=== PATIENT | female | born 1950 | race Caucasian/White ===

== ENCOUNTER 2020-06-12 10:14 | Outpatient (CLI) | payer MEDICARE, MEDICAID, SELFPAY ==
--- NOTE | ~2020-06-12 | XR_ITS ---
EXAMINATION: XR knee RT min 4V DATE: 06/12/2020 09:21 INDICATION: Right knee injury and pain. TECHNIQUE: 4 views of right knee were obtained. COMPARISON: None. FINDINGS: There is varus angulation at the knee. No fracture. There is mild tricompartmental osteoart hritis. There is a small knee joint effusion. IMPRESSION: 1. Mild right knee osteoarthritis. 2. Small right knee joint effusion. Reviewed, dictated and finalized at location A.
== END 2020-06-12 10:15 | disposition home or self-care (01) ==
LOC: ANHIMG 10:15
PROVIDERS: PCP Physician Assistant; Visit Provider Physician Assistant
DX: S89.91XA Unspecified injury of right lower leg, initial encounter (principal); M17.11 Unilateral primary osteoarthritis, right knee; M25.461 Effusion, right knee
CPT/HCPCS: 73564

== ENCOUNTER 2020-06-26 12:44 | Outpatient (CLI) | payer MEDICARE, MEDICAID, SELFPAY ==
--- NOTE | ~2020-06-26 | MR_ITS ---
EXAMINATION: MR knee RT wo con DATE: 06/26/2020 14:18 INDICATION: Right knee pain TECHNIQUE: Magnetic resonance imaging (MRI) of the right knee was performed without intravenous contr ast. Sequences included coronal PD-weighted FSE, coronal PD-weighted FS FSE, sagittal T2-weighted FS E, sagittal PD-weighted FS FSE and axial PD weighted fat saturated FSE. COMPARISON: Right knee radiographs dated 06/12/2020 FINDINGS: Mild motion blurring on several of the sequences. Medial compartment: There is medial extrusion of the medial meniscal body. Radial tear near the posterior root of the med ial meniscus. Cartilage loss and chondral surface irregularity along the anterior and medial aspects of the medial tibial plateau. There is marrow edema underlying the medial rim of the medial tibial pl ateau with small region of subarticular decreased signal which could represent either eburnation and sclerosis or potentially subarticular stress fracture related to altered weight distribution. Additio nal partial thickness cartilage loss with chondral surface regularity along the anterior to central w eightbearing medial femoral condyle. There is some chondral fissuring along the posterior weightbeari ng medial femoral condyle with relatively preserved chondral thickness. Small marginal osteophytes ar e present. Lateral compartment: Loss of the normally sharp triangular free edge along the anterior horn and body of the lateral menis cus suggesting fraying and/or tear of indeterminate morphology. There is some partial-thickness chond ral fissuring without degenerative subarticular changes at the anterior weightbearing lateral femoral condyle. Mild thickness cartilage loss along the central weightbearing lateral femoral condyle incre asing in severity with small focus of subarticular edema at the posterior weightbearing lateral femor al condyle. There is also some partial thickness cartilage loss and chondral fissuring at the medial side of the lateral tibial plateau extending onto the shoulder the intercondylar eminence. Patellofemoral compartment: Extensive cartilage loss along the patella, in places approaching full/near full-thickness but withou t degenerative subarticular changes. Additional partial thickness cartilage loss along the lateral tr ochlea. Small marginal osteophytes are present. Ligaments and tendons: Anterior and posterior cruciate ligaments are normal. Mild thickening and minimal increased signal wi thout surrounding edema at the proximal medial collateral ligament consistent with mild scarring rela delores to chronic sprain. The fibular collateral ligament is normal. The extensor mechanism is normal. T he visualized medial and lateral hamstring tendons as well as the iliotibial band are normal. Fluid: Small right knee joint effusion. No loose osteochondral bodies identified. Osseous/other: Small low signal intensity bone islands at the lateral femoral condyle and at the lateral aspect of t he proximal tibia near the tibiofibular articulation. Aside from the subarticular edema at the medial tibial plateau there is normal marrow signal. No fracture or pathologic marrow replacing process. IMPRESSION: 1. Radial tear at the posterior root of the medial meniscus. 2. Fraying versus tear of indeterminate morphology along the inner free edge of the anterior horn and body of the lateral meniscus. 3. Tricompartmental osteoarthritis, moderate in the medial and patellofemoral compartments and mild i n the lateral compartment with regions of moderate to high-grade chondral malacia in all 3 compartmen ts. 4. Prominent marrow edema underlying the medial rim of the medial tibial plateau which could be relat ed to overlying chondromalacia or small subarticular stress fracture related to altered weight distri bution. 5. Likely reactive small right knee joint effusion.
== END 2020-06-26 12:45 | disposition home or self-care (01) ==
PROVIDERS: PCP Physician Assistant; Visit Provider Physician Assistant
DX: S83.241A Other tear of medial meniscus, current injury, right knee, initial encounter (principal); S83.281A Other tear of lateral meniscus, current injury, right knee, initial encounter; M17.11 Unilateral primary osteoarthritis, right knee; M22.41 Chondromalacia patellae, right knee; M79.89 Other specified soft tissue disorders; M25.461 Effusion, right knee
CPT/HCPCS: 73721

== ENCOUNTER 2020-07-14 07:26 | Outpatient (CLI) | payer MEDICARE, MEDICAID, SELFPAY ==
--- NOTE | 2020-07-14 08:20 | ECG_ITS ---
Measurements Intervals [place] Rate: 66 P: 56 SC: 152 QRS: -3 QRSD: 90 T: 1 QT: 378 QTc: 398 Interpretive Statements SINUS RHYTHM POSSIBLE LEFT ATRIAL ENLARGEMENT VOLTAGE CRITERIA FOR LVH CANNOT RULE OUT SEPTAL INFARCT, AGE INDETERMINATE CONSIDER INFERIOR INFARCT, AGE INDETERMINATE BASELINE ARTIFACT- II, III, AVF ABNORMAL ECG Electronically Signed On 07-14-2020 15:03:29 CDT by Maurice Chanel D.O.
[2020-07-14 09:10] LABS: Anion Gap 4 mmol/L (8-16); Blood Urea Nitrogen 16 mg/dL (7-17); Carbon Dioxide 36 mmol/L (22-30); Chloride 99 mmol/L (98-107); Estimated Glomerular Filt Rate > 60; Glucose 81 mg/dL (65-105); Potassium 3.2 mmol/L (3.4-5.0); Sodium 139 mmol/L (137-145)
== END 2020-07-14 07:27 | disposition home or self-care (01) ==
LOC: ANHLAB 07:29
PROVIDERS: PCP Physician Assistant; Visit Provider Orthopaedic Surgery
DX: Z01.818 Encounter for other preprocedural examination (principal); R94.31 Abnormal electrocardiogram [ECG] [EKG]
CPT/HCPCS: 36415; 80048; 93005

== ENCOUNTER → 2021-03-08 14:00 | Outpatient (CLI) | payer MEDICARE, MEDICAID, SELFPAY ==
--- NOTE | ~2021-03-08 | MM_ITS ---
EXAMINATION: MM screening [facility] w [facility] HISTORY: Screening mammogram TECHNIQUE: Craniocaudal and mediolateral oblique 3-D tomosynthesis images were obtained and synthetic 2-D images were generated. CAD analysis was submitted and interpreted. COMPARISON: 07/26/2018 bilateral digital screening mammogram 08/13/2018 diagnostic right digital mammogram BREAST PARENCHYMAL COMPOSITION: There are scattered areas of fibroglandular density. FINDINGS: Biopsy marker on the left; history of prior benign left breast biopsy. Bilateral benign calcifications. There is no evidence of suspicious mass, calcification, or professor of architecture ural distortion to suggest malignancy in either breast. There has been no suspicious interval change. IMPRESSION: 1. No mammographic evidence of malignancy. 2. Recommend routine screening mammography in one year. BI-RADS Category 2: Benign finding(s). Reviewed, dictated and finalized at location A.
== END ==
PROVIDERS: PCP Physician Assistant; Visit Provider Physician Assistant
DX: Z12.31 Encounter for screening mammogram for malignant neoplasm of breast (principal)
CPT/HCPCS: 77063; 77067

== ENCOUNTER → 2022-08-08 13:15 | Outpatient (CLI) | payer MEDICARE, MEDICAID, SELFPAY ==
--- NOTE | ~2022-08-08 | MM_ITS ---
EXAMINATION: MM screening [facility] BI w [facility] HISTORY: Screening mammogram TECHNIQUE: Craniocaudal and mediolateral oblique 3-D tomosynthesis images were obtained and synthetic 2-D images were generated. CAD analysis was submitted and interpreted. COMPARISON: 03/08/2021, 08/13/2018, 07/26/2018 BREAST PARENCHYMAL COMPOSITION: The breasts are heterogeneously dense, which may obscure small masses . FINDINGS: No suspicious mass, calcification, or architectural distortion are identified in either [place] ast to suggest malignancy. There has been no suspicious interval change. IMPRESSION: 1. No mammographic evidence of malignancy. 2. Recommend routine screening mammography in one year. BI-RADS Category 1: Negative Reviewed, dictated and finalized at location A.
== END ==
PROVIDERS: PCP Physician Assistant; Visit Provider Physician Assistant
DX: Z12.31 Encounter for screening mammogram for malignant neoplasm of breast (principal)
CPT/HCPCS: 77063; 77067

== ENCOUNTER → 2022-09-17 16:13 | Outpatient (CLI) | payer MEDICARE, MEDICAID, SELFPAY ==
--- NOTE | ~2022-09-17 | XR_ITS ---
XR lumbar spine 2-3V DATE: 09/17/2022 16:44 INDICATION: Low back pain TECHNIQUE: AP, lateral, coned lateral lumbosacral views COMPARISON: None FINDINGS: There is approximately 28 degrees rotatory levoscoliosis measured from L1 to L4. Osteopenia. Included lower thoracic and lumbar pedicles appear intact. Normal alignment of the lumbar vertebrae w ithout spondylolisthesis. There is severe degenerative disc disease with prominent spurring on the ri ght at L1-2 and especially L2-3. The sacroiliac joints are intact. IMPRESSION: Approximately 28 degrees rotatory levoscoliosis from L1 to L4 Degenerative disease particularly the right at L1-2 to and especially L2-3 Osteopenia Reviewed, dictated and finalized at location B. EE WEIGHER
== END ==
PROVIDERS: PCP Physician Assistant; Visit Provider Physician Assistant
DX: M54.50 Low back pain, unspecified (principal); M41.86 Other forms of scoliosis, lumbar region; M85.88 Other specified disorders of bone density and structure, other site
CPT/HCPCS: 72100